=== PATIENT | female | born 1975 | race African-American/Black ===

== ENCOUNTER 2017-03-28 09:48 | Emergency (ER) | payer OTHER ==
[2017-03-28] MEDS ORDERED: Benzoin Compound STICK TOPICAL ONE (11:07)
[2017-03-28] MEDS ORDERED: Tetan/Diph/Pertus SYR(Tdap)* 0.5 ML SYR(BOOSTRIX) use SYR IM ONE (11:07)
[2017-03-28] MEDS ORDERED: Ibuprofen TAB* 600 MG PO ONE (11:07)
--- NOTE | 2017-03-28 11:13 | UC ---
Skin Complaint HPI - HPI Summary HPI Summary: left thumb laceration on a glass at work this morning - History of Current Complaint Chief Complaint: UCLaceration Time Seen by Provider: 03/28/17 10:57 Stated Complaint: HAND LAC Hx Obtained From: Patient Hx Last Menstrual Period: 03/09/17 ?: No Onset/Duration: Sudden Onset, Still Present Skin Exposure Onset/Duration: Hours Ago Timing: Constant Onset Severity: Mild Current Severity: Moderate Pain Intensity: 5 Pain Scale Used: 0-10 Numeric Location: Discrete - mear mcp joint of left hand Character: Pain Aggravating Factor(s): Touch Alleviating Factor(s): Nothing Associated Signs & Symptoms: Positive: Negative - Allergy/Home Medications Allergies/Adverse Reactions: Allergies Allergy/AdvReac Type Severity Reaction Status Date / Time Sulfa Drugs Allergy Severe Rash Verified 03/28/17 10:12 Home Medications: Home Medications NK [No Home Medications Reported] 03/28/17 [History Confirmed 03/28/17] Review of Systems Constitutional: Negative Skin: Negative, Other - 1.5 cm laceration to mcp of left thumb Eyes: Negative ENT: Negative Respiratory: Negative Cardiovascular: Negative Gastrointestinal: Negative Genitourinary: Negative Motor: Negative Neurovascular: Negative Musculoskeletal: Negative Neurological: Negative Psychological: Negative Is Patient Immunocompromised?: No All Other Systems Reviewed And Are Negative: Yes PMH/Surg Hx/FS Hx/Imm Hx Previously Healthy: Yes - Surgical History Surgical History: Yes Surgery Procedure, Year, and Place: CESECTION X4. TUBAL LIGATION 2005. lt knee surgery feb 18 2014(MENISCECTOMY @[facility] [place] NO METAL) - Family History Known Family History: Positive: None - Social History Occupation: Employed Full-time Lives: With Family Alcohol Use: None Substance Use Type: None Smoking Status (MU): Never Smoked Tobacco Type: Cigarettes Amount Used/How Often: couple a day When Did the Patient Quit Smoking/Using Tobacco: 01/27/14 - Immunization History Most Recent Tetanus Shot: pt is unsure Hx Tetanus, Diphtheria Vaccination: Yes Vaccination Up to Date: No Physical Exam Triage Information Reviewed: Yes Appearance: Well-Appearing, No Pain Distress, Well-Nourished Vital Signs: Initial Vital Signs Temp 99.8 F 03/28/17 10:13 Pulse 87 03/28/17 10:13 Resp 16 03/28/17 10:13 BP 152/90 03/28/17 10:13 Pulse Ox 100 03/28/17 10:13 Vital Signs Reviewed: Yes Eye Exam: Normal Eyes: Positive: Conjunctiva Clear ENT Exam: Normal ENT: Positive: Normal ENT inspection, Hearing grossly normal. Negative: Nasal congestion, Nasal drainage, Trismus, Muffled/hoarse voice Dental Exam: Normal Neck exam: Normal Neck: Positive: Supple, Nontender Respiratory Exam: Normal Respiratory: Positive: Chest non-tender, Lungs clear, No respiratory distress, No accessory muscle use Cardiovascular Exam: Normal Cardiovascular: Positive: RRR, Pulses Normal, Brisk Capillary Refill Musculoskeletal Exam: Normal Musculoskeletal: Positive: Strength Intact, ROM Intact, No Edema Neurological Exam: Normal Neurological: Positive: Alert, Muscle Tone Normal Psychological Exam: Normal Skin Exam: Normal Skin: Positive: Other - 1.5 cm laceration left thumb near mcp joint Laceration Repair - Laceration Repair 1 Description: Linear Laceration Size After Repair: Length (cm) - 1.5, Width (mm) - 3, Depth (mm) - 2 Modified For Repair: No Cleansing Completed Via Routine Prep: Yes Irrigation With Pressure Irrigation Device: Yes Closure Material: Skin Adhesive, SteriStrips Course/Dx - Course Course Of Treatment: DO not get laceration wet, use splint for 7 days, do not remove steri strips ibuprofen for pain follow with pcp prn - Differential Diagnoses - Skin Complaint Differential Diagnoses: Foreign Body, Other - laceration - Diagnoses Provider Diagnoses: 1.5 cm laceration with glue and steri repair, high blood pressure without dx of hypertension Discharge - Discharge Plan Condition: Stable Disposition: HOME Patient Education Materials: Skin Adhesive Care (ED), Steristrips (ED), Ibuprofen (By mouth), Hypertension (ED) Forms: *Work Release Referrals: Danny Malcolm MD [Primary Care Provider] - 2 Weeks
[2017-03-28 12:29] VITALS: BP 156/76
== END 2017-03-28 12:20 | disposition home or self-care (01) ==
LOC: UCEAST 09:48
DX: S61.012A Laceration without foreign body of left thumb without damage to nail, initial encounter (principal); W25.XXXA Contact with sharp glass, initial encounter; Y92.89 Other specified places as the place of occurrence of the external cause; Z88.2 Allergy status to sulfonamides
CPT/HCPCS: 12001; 90715; 99212; A9270-GY; G0463

== ENCOUNTER 2017-04-17 15:41 | Emergency (ER) | payer OTHER ==
--- NOTE | 2017-04-17 16:08 | UC ---
Complaint Female HPI - HPI Summary HPI Summary: 41 year old female presents with complains of urinary frequency and urgency. - History Of Current Complaint Stated Complaint: UTI Time Seen by Provider: 04/17/17 16:08 Hx Obtained From: Patient Hx Last Menstrual Period: 03/09/17 Onset/Duration: Sudden Onset Timing: Constant Severity Initially: Moderate Severity Currently: Moderate - Allergies/Home Medications Allergies/Adverse Reactions: Allergies Allergy/AdvReac Type Severity Reaction Status Date / Time Sulfa Drugs Allergy Severe Rash Verified 04/17/17 16:08 PMH/Surg Hx/FS Hx/Imm Hx Previously Healthy: Yes - Surgical History Surgical History: Yes Surgery Procedure, Year, and Place: CESECTION X4. TUBAL LIGATION 2005. lt knee surgery feb 18 2014(MENISCECTOMY @[facility] [place] NO METAL) - Family History Known Family History: Positive: None - Social History Alcohol Use: None Substance Use Type: None Smoking Status (MU): Never Smoked Tobacco Type: Cigarettes Amount Used/How Often: couple a day When Did the Patient Quit Smoking/Using Tobacco: 01/27/14 - Immunization History Most Recent Tetanus Shot: pt is unsure Hx Tetanus, Diphtheria Vaccination: Yes Vaccination Up to Date: No Review of Systems Constitutional: Negative Skin: Negative Eyes: Negative ENT: Negative Respiratory: Negative Cardiovascular: Negative Gastrointestinal: Negative Genitourinary: Dysuria, Frequency, Urgency Motor: Negative Neurovascular: Negative Musculoskeletal: Negative Neurological: Negative Psychological: Negative All Other Systems Reviewed And Are Negative: Yes Physical Exam Triage Information Reviewed: Yes Vital Signs Reviewed: Yes Eye Exam: Normal ENT Exam: Normal Dental Exam: Normal Neck exam: Normal Neck: Positive: 1 Respiratory Exam: Normal Cardiovascular Exam: Normal Abdomen Description: Positive: Other: - suprapubic pain Musculoskeletal Exam: Normal Neurological Exam: Normal Psychological Exam: Normal Skin Exam: Normal Complaint Female Dx - Differential Dx/Diagnosis Provider Diagnoses: uti Discharge - Discharge Plan Condition: Stable Disposition: HOME Prescriptions: Nitrofurantoin Monohyd Macro [Macrobid] 100 mg PO BID #[id number] cap Patient Education Materials: Urinary Tract Infection in Women (ED) Referrals: Danny Malcolm MD [Primary Care Provider] -
[2017-04-17 16:09] VITALS: BP 147/86
--- NOTE | 2017-04-18 18:08 | ED ---
Progress - Progress Note Progress Note: no change Course/Dx - Diagnoses Provider Diagnoses: UTI (urinary tract infection)
--- NOTE | 2017-04-19 15:31 | ED ---
Progress - Progress Note Progress Note: no change 04/19/17 no change Course/Dx - Diagnoses Provider Diagnoses: UTI (urinary tract infection)
== END 2017-04-17 16:25 | disposition home or self-care (01) ==
LOC: UCEAST 15:41
DX: N39.0 Urinary tract infection, site not specified (principal); Z88.2 Allergy status to sulfonamides
CPT/HCPCS: 81003; 87077; 87086; 87186; 99212; G0463